=== PATIENT | female | born 1985 | race Caucasian/White ===

== ENCOUNTER 2018-01-22 02:41 | Inpatient (IN) | payer OTHER ==
[~2018-01-22 02:41] MED LIST: DOCO200C5 PO
[2018-01-22] MEDS ORDERED: BENZOCAINE 20%/MENTHOL 56 GM SPRAY CANISTER TP PRN (03:15)
[2018-01-22] MEDS ORDERED: OxyCODONE HCL/ACETAMINOPHEN 5-325 MG TABLET PO PRN ×2 (03:15)
[2018-01-22] MEDS ORDERED: LIDOCAINE/PF 1% 30 ML VIAL INJ PRN (03:15)
[2018-01-22] MEDS ORDERED: GLYCERIN/WITCH HAZEL LEAF 40 PADS JAR TP PRN (03:15)
[2018-01-22] MEDS ORDERED: OXYTOCIN 10 UNITS/ML VIAL IM ONE ×2 (03:15→03:19)
[2018-01-22] MEDS ORDERED: LANOLIN 7 GM OINTMENT TP PRN (03:15)
[2018-01-22] MEDS ORDERED: IBUPROFEN 800 MG TABLET PO PRN (03:15)
[2018-01-22] MEDS ORDERED: LIDOCAINE/PF 1% 30 ML VIAL ONE (03:19)
[2018-01-22 04:02] VITALS: BP 124/65
[2018-01-22 08:54] LABS: BASOPHILS % (AUTO) 0.2 % (0.0-2.0); EOSINOPHILS % (AUTO) 0.1 % (1.0-6.0); HEMATOCRIT 29.3 % (36-46); LYMPHOCYTES # (AUTO) 0.8 K/uL (1.0-4.8); LYMPHOCYTES % (AUTO) 6.5 % (22.0-44.0); MEAN CORPUSCULAR HEMOGLOBIN 21.6 pg (26.0-34.0); MEAN CORPUSCULAR HGB CONC 30.8 G/dL (31.0-37.0); MEAN CORPUSCULAR VOLUME 70 fL (80-100); MONOCYTES # (AUTO) 0.5 K/uL (0.1-1.0); MONOCYTES % (AUTO) 3.9 % (2.0-9.0); NEUTROPHILS # (AUTO) 10.6 K/uL (1.8-7.7); PLATELET COUNT (AUTO)-OB 264 K/uL (150-450); RED BLOOD CELL COUNT(AUTO) 4.17 MIL/uL (4.00-5.20); RED CELL DISTRIBUTION WIDTH 26.4 % (11.5-14.5)
[2018-01-22 08:58] LABS: NEUTROPHILS % (AUTO) 89.3 % (40.0-70.0)
[2018-01-22] MEDS: MAGNESIUM HYDROXIDE SUSPENSION 30 ML UDCUP PO PRN ×2 (09:07→20:58)
[2018-01-23] MEDS ORDERED: IBUP-2071 PO (08:56)
[2018-01-23] MEDS ORDERED: FERR-89 PO (08:56)
[2018-01-23] MEDS ORDERED: DSS100 PO (08:57)
== END 2018-01-23 11:25 | disposition home or self-care (01) | DRG 807 ==
LOC: EMS 02:41 → 4S 03:00
PROVIDERS: ADMIT Obstetrics & Gynecology; ATTEND Obstetrics & Gynecology
PROC: 10E0XZZ Delivery of Products of Conception, External Approach (ICD-10-PCS; principal; 2018-01-22)
PROC: 0KQM0ZZ Repair Perineum Muscle, Open Approach (ICD-10-PCS; 2018-01-22)
DX: O70.1 Second degree perineal laceration during delivery (principal); Z37.0 Single live birth; Z3A.40 40 weeks gestation of pregnancy
CPT/HCPCS: 59414; J2590; J3490